=== PATIENT | male | born 1985 | race Caucasian/White ===

== ENCOUNTER 2016-08-15 20:22 | Emergency (ER) | payer MEDICARE ==
[~2016-08-15] VITALS: Ht 175.3 cm; Wt 81.6 kg
[2016-08-15 20:25] VITALS: BP 154/93
== END 2016-08-15 21:51 | disposition left against medical advice (07) ==
LOC: ED 21:45
DX: Z00.8 Encounter for other general examination (principal); Z53.21 Procedure and treatment not carried out due to patient leaving prior to being seen by health care provider

== ENCOUNTER 2016-08-18 18:22 | Emergency (ER) | payer MEDICARE ==
[~2016-08-18] VITALS: Ht 175.3 cm; Wt 81.5 kg
[2016-08-18 19:41] VITALS: BP 119/86
[2016-08-18] MEDS ORDERED: HYDROcodone/APAP 5/325 TABLET ONE (19:58)
[2016-08-18] MEDS ORDERED: HYDROcodone/APAP 5/325 TABLET PO ONE (20:00)
== END 2016-08-18 20:25 | disposition home or self-care (01) ==
LOC: ED 20:20
DX: S02.2XXA Fracture of nasal bones, initial encounter for closed fracture (principal); Y04.0XXA Assault by unarmed brawl or fight, initial encounter; Y93.89 Activity, other specified; Y99.8 Other external cause status; Y92.410 Unspecified street and highway as the place of occurrence of the external cause
CPT/HCPCS: 99283

== ENCOUNTER 2017-04-29 10:40 | Emergency (ER) | payer MEDICARE, MEDICAID ==
[~2017-04-29] VITALS: Ht 175.3 cm; Wt 80.8 kg
[2017-04-29 10:44] VITALS: BP 117/82
== END 2017-04-29 11:59 | disposition home or self-care (01) ==
LOC: ED 11:53
DX: K08.89 Other specified disorders of teeth and supporting structures (principal)
CPT/HCPCS: 99283

== ENCOUNTER 2019-02-10 16:25 | Emergency (ER) | payer SELFPAY ==
[~2019-02-10] VITALS: Ht 180.3 cm; Wt 75.5 kg
[2019-02-10 16:28] VITALS: BP 129/81
[2019-02-10] MEDS ORDERED: LIDOCAINE 1%-EPI 1:100K, 20ML INFIL ONE (17:00)
[2019-02-10] MEDS ORDERED: LIDOCAINE 1%-EPI 1:100K, 20ML ONE (17:10)
[2019-02-10] MEDS ORDERED: HYDROcodone/APAP 5/325 TABLET ONE (17:48)
--- NOTE | 2019-02-10 17:53 | NUR ---
PT RETURNED FROM IMAGING. EMT AT BEDSIDE FOR IRRIGATION
[2019-02-10] MEDS ORDERED: HYDROcodone/APAP 5/325 TABLET PO ONE (18:00)
[2019-02-10] MEDS ORDERED: NEOSPORIN OINT. PKT 1 PACKET ONE (18:10)
== END 2019-02-10 18:15 | disposition home or self-care (01) ==
LOC: ED 18:09
DX: S01.01XA Laceration without foreign body of scalp, initial encounter (principal); M54.6 Pain in thoracic spine; W01.0XXA Fall on same level from slipping, tripping and stumbling without subsequent striking against object, initial encounter; Y93.89 Activity, other specified; Y92.89 Other specified places as the place of occurrence of the external cause; Y99.8 Other external cause status
CPT/HCPCS: 12031; 70450; 72072; 99284

== ENCOUNTER 2019-02-18 11:45 | Emergency (ER) | payer SELFPAY ==
[~2019-02-18] VITALS: Ht 180.3 cm; Wt 75.0 kg
[2019-02-18 11:49] VITALS: BP 105/74
--- NOTE | 2019-02-18 11:59 | NUR ---
Pt states he would rather go to convenience store to buy ibuprofen.
[2019-02-18] MEDS ORDERED: IBUPROFEN 200 MG TABLET PO ONE (12:00)
== END 2019-02-18 12:02 | disposition left against medical advice (07) ==
LOC: ED 11:56
DX: B34.9 Viral infection, unspecified (principal)
CPT/HCPCS: 99281

== ENCOUNTER 2019-12-24 10:33 | Emergency (ER) | payer SELFPAY ==
[~2019-12-24] VITALS: Ht 175.3 cm; Wt 76.1 kg
--- NOTE | 2019-12-24 11:20 | NUR ---
PT C/O N/V/D X1 WEEK AND STATES "I AM UNABLE TO KEEP ANYTHING DOWN" AND GENERALIZED ABD DISCOMFORT/TENDERNESS. NOT CURRENTLY VOMITING BUT STATES "I THREW UP TWICE BEFORE I GOT HERE". NAD. PT DENIES ANY URINARY SYMPTOMS. NO OTHER COMPLAINTS AT THIS TIME. FAMILY AT BEDSIDE. CALL LIGHT WITHIN REACH.
[2019-12-24] MEDS ORDERED: FAMOTIDINE 20 MG/2 ML ONE (11:38)
[2019-12-24] MEDS ORDERED: MAALOX/HYOSCYAMINE/LIDOCAINE 45 ML BTL ONE (11:38)
[2019-12-24 11:56] LABS: BASOPHILS # (AUTO) 0.05 x10^3/uL (0-0.1); BASOPHILS % (AUTO) 1 % (0-1); EOSINOPHILS # (AUTO) 0.12 x10^3/uL (0-0.4); EOSINOPHILS % (AUTO) 1 % (1-7); LYMPHOCYTES # (AUTO) 2.19 x10^3/uL (1-3.4); LYMPHOCYTES % (AUTO) 22 % (22-44); MD NO; MEAN CORPUSCULAR HGB CONC 33.3 g/dL (33.2-36.2); MEAN CORPUSCULAR VOLUME 96.1 fL (81-97); MEAN PLATELET VOLUME 8.8 fL (7.4-10.4); MONOCYTES # (AUTO) 0.54 x10^3/uL (0.2-0.8); MONOCYTES % (AUTO) 6 % (2-9); NEUTROPHILS # (AUTO) 6.96 x10^3/uL (1.8-6.8); NEUTROPHILS % (AUTO) 71 % (42-75); PLATELET COUNT 207 x10^3/uL (130-400); RED BLOOD COUNT 5.08 x10^6/uL (4.38-5.82)
[2019-12-24] MEDS ORDERED: SODIUM CHLORIDE FLUSH 10ML SYR IVF ONE (12:00)
[2019-12-24] MEDS ORDERED: SODIUM CHLORIDE 0.9% 1,000ML IVBOLUS ONE (12:00)
[2019-12-24] MEDS ORDERED: MAALOX/HYOSCYAMINE/LIDOCAINE 45 ML BTL PO ONE (12:00)
[2019-12-24] MEDS ORDERED: FAMOTIDINE 20 MG/2 ML IVPush ONE (12:00)
--- NOTE | 2019-12-24 12:03 | NUR ---
PT SITTING ON GURNEY TALKING WITH FAMILY AT BEDSIDE. NS INFUSING PER EMAR. NAD, NO ADDITIONAL NEEDS AT THIS TIME. CALL LIGHT WITHIN REACH, FALL PRECAUTIONS IN PLACE.
[2019-12-24 12:11] LABS: ALANINE AMINOTRANSFERASE 51 U/L (12-78); ALBUMIN 4.1 g/dL (3.4-5.0); ANION GAP 8 mmol/L (5-15); CALCIUM 8.9 mg/dL (8.5-10.1); CHLORIDE 108 mmol/L (98-107); CREATININE 1.18 mg/dL (0.7-1.3)
[2019-12-24 12:13] LABS: ALKALINE PHOSPHATASE 68 U/L (45-117); BILIRUBIN,TOTAL 0.8 mg/dL (0.2-1.0); TOTAL PROTEIN 7.6 g/dL (6.4-8.2)
--- NOTE | 2019-12-24 12:54 | NUR ---
PT SITTING ON GURNEY COMFORTABLY. NAD, VSS. PT DENIES ANY ADDITIONAL NEEDS AT THIS TIME AND STATES "I FEEL A LOT BETTER AFTER THE FLUIDS". CALL LIGHT WITHIN REACH, FALL PRECAUTIONS IN PLACE.
--- NOTE | 2019-12-24 13:18 | NUR ---
Patient given discharge instructions and they have confirmed that they understand the instructions. Patient ambulatory with steady gait.
[2019-12-24 13:19] VITALS: BP 101/68
== END 2019-12-24 13:23 | disposition home or self-care (01) ==
LOC: ED 11:38
DX: K29.00 Acute gastritis without bleeding (principal); R11.2 Nausea with vomiting, unspecified; R10.13 Epigastric pain; R42 Dizziness and giddiness; F17.210 Nicotine dependence, cigarettes, uncomplicated
CPT/HCPCS: 36415; 80053; 83690; 85025; 96361; 96374; 99283; 99406; J3490; J7030

== ENCOUNTER 2020-12-04 16:17 | Emergency (ER) | payer OTHER ==
[~2020-12-04] VITALS: Ht 177.8 cm; Wt 77.5 kg
[2020-12-04 16:32] VITALS: BP 122/65
== END 2020-12-04 19:18 ==
LOC: ED 16:42
DX: S46.212A Strain of muscle, fascia and tendon of other parts of biceps, left arm, initial encounter (principal); W18.30XA Fall on same level, unspecified, initial encounter; Y93.89 Activity, other specified; Y92.009 Unspecified place in unspecified non-institutional (private) residence as the place of occurrence of the external cause; Y99.8 Other external cause status
CPT/HCPCS: 99282

== ENCOUNTER 2020-12-12 11:36 | Emergency (ER) | payer OTHER, MEDICARE, MEDICAID ==
[~2020-12-12] VITALS: Ht 205.7 cm; Wt 76.3 kg
[2020-12-12 11:54] VITALS: BP 109/54
--- NOTE | 2020-12-12 14:17 | NUR ---
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
--- NOTE | 2020-12-12 14:39 | NUR ---
PT HERE WITH MULTIPLE COMPLAINTS. THINKS HE HAS MULTIPLE SCLEROSIS SYMPTOMS WITH SHAKING LEG AND ARM AND MULTIPLE FALLS. PT REPORTS HISTORY OF TRAUMATIC BRAIN INJURY AT AGE 13. UPPER BACK PAIN FROM STRAINING TO LIFT A BOX AT WORK. X-RAY BACK. WAITING TO SEE MD. PT HAD STEADY GAIT TO ROOM FROM [facility]
--- NOTE | 2020-12-12 15:01 | NUR ---
BEDSIDE REPORT RECEIVED FROM DUSTIN FIGUEROA
--- NOTE | 2020-12-12 15:18 | NUR ---
pt educated on dc instructions, verbalized understanding, ambulatory to dc desk with steady gait.
== END 2020-12-12 15:20 | disposition home or self-care (01) ==
LOC: ED 15:00
DX: S39.012A Strain of muscle, fascia and tendon of lower back, initial encounter (principal); F17.210 Nicotine dependence, cigarettes, uncomplicated; X58.XXXA Exposure to other specified factors, initial encounter; Y93.89 Activity, other specified; Y92.89 Other specified places as the place of occurrence of the external cause; Y99.8 Other external cause status
CPT/HCPCS: 72072; 99406